=== PATIENT | female | born 1930 | race Caucasian/White ===

== ENCOUNTER 2017-01-21 16:21 | Emergency (ER) | payer OTHER, MEDICARE ==
[~2017-01-21] VITALS: Ht 165.1 cm; Wt 79.4 kg
--- NOTE | 2017-01-21 16:37 | ED ANKLE/FOOT INJURY COMPLAINT ---
History of Present Illness General Chief Complaint: Foot or Ankle Injury Stated Complaint: LT FOOR INJ. Source: patient, family Exam Limitations: poor historian Vital Signs & Intake/Output Vital Signs & Intake/Output Vital Signs Date Time Temp Pulse Resp B/P B/P Pulse O2 O2 Flow FiO2 Mean Ox Delivery Rate 01/21 1624 97.0 56 18 140/64 99 Room Air Allergies Coded Allergies: ibuprofen (From MOTRIN) (UNKNOWN 08/13/16) shellfish derived ([place] 08/13/16) Triage Note: 86 YO FEMALE BIBA FROM HOME. PT STATES SHE HAD A MECHANICAL FALL YESTERDAY AND NOW HAS PAIN TO HER L FOOT. L LATERAL ASPECT OF TOP OF FOOT NOTED TO BE SWOLLEN AND BRUISED. PT DENIES HEADSTRIKE. PT STATES SHE IS UNABLE TO WEAR WEIGHT ON FOOT. Triage Nurses Notes Reviewed? yes Occurred: yesterday Duration: day(s): (1) Timing: multiple episodes today Severity: mild, moderate Pain/Injury Location: Left: Foot. Method of Injury: fall Modifying Factors: Worsens With: movement. Associated Symptoms: swelling, bruising HPI: 86 year old female presents to the ED with left foot pain since mechanical fall yesterday. She states it jurts less today then yesterday but that it still hurts to walk on it. She endorses bruising, swelling. No head strike, loss of consciousness or syncope. Past History Travel History Traveled to [place] past 21 day No Medical History Any Pertinent Medical History? see below for history Neurological: CVA EENT: [place] Cardiovascular: hypertension Respiratory: NONE Gastrointestinal: NONE Hepatic: NONE Renal: NONE Musculoskeletal: NONE Psychiatric: NONE Endocrine: NONE Blood Disorders: NONE Cancer(s): NONE FLOORS BUFFER/Reproductive: NONE Surgical History Surgical History: non-contributory Psychosocial History What is your primary language [place] Tobacco Use: Never used Family History Hx Contributory? No Review of Systems Review of Systems Constitutional: Denies: chills, fever. EENTM: Reports: no symptoms. Respiratory: Denies: cough, short of breath. Cardiovascular: Denies: chest pain, palpitations. GI: Denies: abdominal pain. Genitourinary: Reports: no symptoms. Musculoskeletal: Reports: no symptoms. Skin: Reports: no symptoms. Neurological/Psychological: Reports: no symptoms. Hematologic/Endocrine: Reports: bruising. Denies: bleeding, polyuria, polydipsia. Immunologic/Allergic: Denies: splenectomy. All Other Systems: Reviewed and Negative Physical Exam Physical Exam General Appearance: well developed/nourished, mild distress Head: atraumatic Eyes: Bilateral: PERRL, EOMI. Ears, Nose, Throat: normal pharynx, normal ENT inspection, hearing grossly normal Neck: normal inspection, supple Cardiovascular/Respiratory: regular rate/rhythm Back: normal inspection Leg/Knee/Thigh Left: normal range of motion, normal inspection Leg/Knee/Thigh Right: normal range of motion, normal inspection Ankle Left: normal inspection, normal range of motion Ankle Right: normal inspection, normal range of motion Foot Left: ecchymosis, pain, swelling Foot Right: normal inspection, normal range of motion Neuro/Vascular: normal motor function, normal sensation Tendon: normal tendon function Psychiatric: awake, alert, oriented x 3 Skin: intact, normal color, warm/dry Progress Differential Diagnosis: fracture, sprain, contusion Plan of Care: Orders Procedure Date/time Status Durable Medical Equipment 01/21 1741 Active Diagnostic Imaging: Viewed by Me: Radiology Read. Discussed w/RAD: Radiology Read. Radiology Impression: PATIENT: VANESSA DEL TORO PRESENT AGE: 86 PATIENT ACCOUNT NO: [id number] : 30 LOCATION: [facility] ORDERING PHYSICIAN: LINDA SWIFT MD SERVICE DATE: 01/21/17 EXAM TYPE: RAD - XRY-FOOT COMPLETE, LEFT EXAMINATION: XR FOOT, LEFT CLINICAL INFORMATION: Pain, fall COMPARISON: None TECHNIQUE: 3 views of the left foot. FINDINGS: Fracture base of the fifth metatarsal. Otherwise degenerative changes. IMPRESSION: Fracture base of fifth metatarsal. Mildly distracted. DICTATED BY: KAMILLA BAEZA MD DATE/TIME DICTATED:01/21/171702 LIQUEFIED PETROLE[employer] GASFITTER:CARIN DATE/TIME TRANSCRIBED:01/21/171702 CONFIDENTIAL, DO NOT COPY WITHOUT APPROPRIATE AUTHORIZATION. <Electronically signed in Other Vendor System> SIGNED BY: KAMILLA BAEZA MD 01/21/171706 Departure Departure Time of Disposition: 1744 Disposition: HOME OR SELF CARE Condition: Stable Clinical Impression Primary Impression: Fracture of 5th metatarsal Referrals: JANN WALLACE,SAMANTA RILEY (PCP/Family) Additional Instructions: Ice, rest and elevate the foot. Take Tylenol or Motrin as needed for pain. Please follow-up with the trading specialist listed. Use the walking shoe that was given to you in the ER today. Departure Forms: Customer Survey General Discharge Information Procedures Splinting Location: LEFT BOOT Splint Applied By: splint applied by other Pre-Proc Neuro Vasc Exam: normal
--- NOTE | 2017-01-21 17:07 | RADIOLOGY REPORT ---
EXAMINATION: XR FOOT, LEFT CLINICAL INFORMATION: Pain, fall COMPARISON: None TECHNIQUE: 3 views of the left foot. FINDINGS: Fracture base of the fifth metatarsal. Otherwise degenerative changes. IMPRESSION: Fracture base of fifth metatarsal. Mildly distracted.
[2017-01-21 17:54] VITALS: BP 136/84
== END 2017-01-21 17:56 ==
LOC: ERH 16:21
DX: S92.351A Displaced fracture of fifth metatarsal bone, right foot, initial encounter for closed fracture (principal); W19.XXXA Unspecified fall, initial encounter
CPT/HCPCS: 73630-LT